=== PATIENT | female | born 1985 | race African-American/Black ===

== ENCOUNTER 2016-11-23 22:17 | Emergency (ER) | payer MEDICAID ==
[2016-11-23 22:25] VITALS: BP 127/91
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
== END 2016-11-24 03:23 | disposition home or self-care (01) ==
LOC: ER 22:17
DX: T14.90 Injury, unspecified (principal); M25.512 Pain in left shoulder; X50.3XXA Overexertion from repetitive movements, initial encounter; Y93.E9 Activity, other interior property and clothing maintenance; Y99.0 Civilian activity done for income or pay; F17.200 Nicotine dependence, unspecified, uncomplicated
CPT/HCPCS: 99283

== ENCOUNTER 2016-12-09 18:06 | Emergency (ER) | payer MEDICAID ==
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
[2016-12-09] MEDS ORDERED: IBUPROFEN 800 MG TABLET PO ONE (18:20)
[2016-12-09] MEDS ORDERED: ONDANSETRON HCL INJ/PF 4 MG/2 ML SDV IV ONE (20:13)
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
[2016-12-09] MEDS ORDERED: MECLIZINE HCL 25 MG TABLET PO ONE (20:19)
[2016-12-09] MEDS ORDERED: MORPHINE SULFATE 10 MG/ML INJ IV ONE (21:04)
[2016-12-09 22:43] VITALS: BP 126/88
== END 2016-12-09 22:33 | disposition home or self-care (01) ==
LOC: ER 18:06
DX: R51 Headache (principal); R11.2 Nausea with vomiting, unspecified; V43.52XA Car driver injured in collision with other type car in traffic accident, initial encounter; I10 Essential (primary) hypertension; R42 Dizziness and giddiness
CPT/HCPCS: 99284; 96374; 96375; 70450; 72125; J3490; J2270; J2405

== ENCOUNTER 2017-03-10 18:14 | Emergency (ER) | payer MEDICAID, OTHER ==
[2017-03-10] MEDS ORDERED: NORMAL SALINE 1000 ML 1,000 ML IV ONE (19:25)
[2017-03-10] MEDS ORDERED: ONDANSETRON HCL INJ/PF 4 MG/2 ML SDV IV ONE (19:25)
[2017-03-10] MEDS ORDERED: KETOROLAC TROMETHAMINE INJ/PF 30 MG/1 ML SDV IV ONE (19:25)
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
[2017-03-10] MEDS ORDERED: DIPHENHYDRAMINE HCL 50 MG/ML VIAL IV ONE (19:41)
[2017-03-10] MEDS ORDERED: METOCLOPRAMIDE HCL INJ/PF 10 MG/2 ML SDV IV ONE (19:41)
[2017-03-10] MEDS ORDERED: MORPHINE SULFATE 10 MG/ML INJ IV ONE (19:41)
[2017-03-10 21:55] VITALS: BP 133/88
== END 2017-03-10 21:56 | disposition home or self-care (01) ==
LOC: ER 18:14
DX: R51 Headache (principal); H53.149 Visual discomfort, unspecified; R11.0 Nausea; I10 Essential (primary) hypertension; Z79.899 Other long term (current) drug therapy; Z86.69 Personal history of other diseases of the nervous system and sense organs
CPT/HCPCS: 99283; 96361; 96374; 96375; J1200; J1885; J2765; J2270; J2405; J7030

== ENCOUNTER 2018-01-23 06:32 | Emergency (ER) | payer MEDICAID ==
[2018-01-23] MEDS ORDERED: BUTALB/ACETAMINOPHEN/CAFFEINE 1 TAB EACH PO ONE (07:41)
[2018-01-23] MEDS ORDERED: KETOROLAC TROMETHAMINE 60 MG/2 ML SDV IM ONE (07:41)
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
[2018-01-23 07:56] VITALS: BP 174/114
--- NOTE | 2018-01-23 08:55 | EKG REPORT ---
SEVERITY:- ABNORMAL ECG - SINUS RHYTHM : Confirmed by: Saúl Man 23-Jan-2018 08:54:41
== END 2018-01-23 07:55 | disposition home or self-care (01) ==
LOC: ER 06:32
DX: R51 Headache (principal); H53.142 Visual discomfort, left eye; I10 Essential (primary) hypertension
CPT/HCPCS: 93005; 99285; 96372; 93010; J3490; J1885

== ENCOUNTER 2018-04-15 09:39 | Emergency (ER) | payer OTHER, MEDICAID ==
[2018-04-15] MEDS ORDERED: ACETAMINOPHEN 325 MG TABLET PO ONE (10:00)
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
[2018-04-15 10:29] VITALS: BP 136/96
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
== END 2018-04-15 10:44 | disposition home or self-care (01) ==
LOC: ER 09:39
DX: S76.912A Strain of unspecified muscles, fascia and tendons at thigh level, left thigh, initial encounter (principal); M79.1 Myalgia; R09.89 Other specified symptoms and signs involving the circulatory and respiratory systems; V49.40XA Driver injured in collision with unspecified motor vehicles in traffic accident, initial encounter; Y93.E8 Activity, other personal hygiene; F17.200 Nicotine dependence, unspecified, uncomplicated; I10 Essential (primary) hypertension; Z79.899 Other long term (current) drug therapy; Z79.1 Long term (current) use of non-steroidal anti-inflammatories (NSAID)
CPT/HCPCS: 71046; 99284

== ENCOUNTER 2018-09-28 07:42 | Emergency (ER) | payer MEDICAID, OTHER ==
[2018-09-28] MEDS ORDERED: NORMAL SALINE 1000 ML 1,000 ML IV ONE (07:59)
[2018-09-28] MEDS ORDERED: DIPHENHYDRAMINE HCL 50 MG/ML VIAL IV ONE (08:00)
[2018-09-28] MEDS ORDERED: METOCLOPRAMIDE HCL INJ/PF 10 MG/2 ML SDV IV ONE (08:00)
[2018-09-28] MEDS ORDERED: KETOROLAC TROMETHAMINE INJ/PF 30 MG/1 ML SDV IV ONE (08:00)
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
--- NOTE | 2018-09-28 09:21 | EKG REPORT ---
SEVERITY:- NORMAL ECG - SINUS RHYTHM : Confirmed by: Saúl Man 28-Sep-2018 09:20:42
[2018-09-28 10:52] VITALS: BP 139/95
== END 2018-09-28 09:50 | disposition home or self-care (01) ==
LOC: ER 07:42
DX: R51 Headache (principal); H53.149 Visual discomfort, unspecified; F17.200 Nicotine dependence, unspecified, uncomplicated; I10 Essential (primary) hypertension; Z79.899 Other long term (current) drug therapy
CPT/HCPCS: 93005; 99284; 93010; J1200; J1885; J2765; J7030

== ENCOUNTER 2019-06-20 00:22 | Emergency (ER) | payer MEDICAID, OTHER ==
[2019-06-20] MEDS ORDERED: CYCLOBENZAPRINE HCL 10 MG TABLET PO ONE (07:15)
[2019-06-20] MEDS ORDERED: NAPROXEN 250 MG TABLET PO ONE (07:15)
[2019-06-20 07:40] LABS: MEAN CORPUSCULAR HEMOGLOBIN 30.1 pg (27.0-33.4)
[2019-06-20 07:44] LABS: HEMATOCRIT 37.1 % (36.0-47.0); HEMOGLOBIN 12.4 g/dL (12.0-15.5); MEAN CORPUSCULAR HGB CONC 33.3 g/dL (32.0-36.0); MEAN CORPUSCULAR VOLUME 90 fl (80-97); PLATELET COUNT 155 10^3/uL (150-450); RED BLOOD COUNT 4.11 10^6/uL (3.72-5.28); RED CELL DISTRIBUTION WIDTH 15.1 % (11.5-14.0); WHITE BLOOD COUNT 6.2 10^3/uL (4.0-10.5)
[2019-06-20 07:57] LABS: ALBUMIN 3.8 g/dL (3.5-5.0); ALKALINE PHOSPHATASE 47 U/L (38-126); ANION GAP 6 (5-19); ASPARTATE AMINO TRANSFERASE 18 U/L (14-36); BILIRUBIN,TOTAL 0.6 mg/dL (0.2-1.3); BLOOD UREA NITROGEN 8 mg/dL (7-20); CALCIUM 9.2 mg/dL (8.4-10.2); CARBON DIOXIDE 26 mmol/L (22-30); CHLORIDE 106 mmol/L (98-107); CREATINE KINASE 126 U/L (30-135); GLUCOSE 80 mg/dL (75-110); POTASSIUM 3.7 mmol/L (3.6-5.0); TOTAL PROTEIN 6.9 g/dL (6.3-8.2)
[2019-06-20 07:59] LABS: C-REACTIVE PROTEIN < 5.0 mg/L (<10.0)
[2019-06-20 08:19] LABS: ABSOLUTE LYMPHOCYTES# (MANUAL) 3.8 10^3/uL (0.5-4.7); ABSOLUTE MONOCYTES # (MANUAL) 0.2 10^3/uL (0.1-1.4); BASOPHILS % (MANUAL) 1 % (0-2); EOSINOPHILS % (MANUAL) 1 % (0-6); LYMPHOCYTES % (MANUAL) 59 % (13-45); MONOCYTES % (MANUAL) 4 % (3-13); SEGMENTED NEUTROPHILS % (MAN) 32 % (42-78); TOTAL CELLS COUNTED 100
[2019-06-20 08:21] LABS: ANISOCYTOSIS SLIGHT; ERYTHROCYTE SEDIMENTATION RATE 8 mm/hr (0-20); SMUDGE CELLS PRESENT
[2019-06-20 08:22] LABS: PLATELET COMMENT ADEQUATE
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
[2019-06-20 09:08] VITALS: BP 154/111
== END 2019-06-20 08:50 | disposition home or self-care (01) ==
LOC: ER 00:22
DX: S76.911A Strain of unspecified muscles, fascia and tendons at thigh level, right thigh, initial encounter (principal); X58.XXXA Exposure to other specified factors, initial encounter; M79.651 Pain in right thigh; M54.5 Low back pain; I10 Essential (primary) hypertension; F17.210 Nicotine dependence, cigarettes, uncomplicated
CPT/HCPCS: 36415; 80053; 82550; 85025; 85652; 86140; 99283

== ENCOUNTER 2020-09-11 12:46 | Emergency (ER) | payer OTHER ==
[2020-09-11 12:55] VITALS: BP 174/116
== END 2020-09-11 14:14 | disposition left against medical advice (07) ==
LOC: ER 12:46
DX: Z53.21 Procedure and treatment not carried out due to patient leaving prior to being seen by health care provider (principal)